=== PATIENT | female | born 1990 | race Two or more races ===

== ENCOUNTER 2018-10-28 20:34 | Emergency (ER) | payer OTHER ==
[~2018-10-28] VITALS: Ht 162.6 cm; Wt 114.8 kg
[2018-10-28 20:46] VITALS: BP 117/53
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
--- NOTE | 2018-10-28 21:04 | NUR ---
Patient discharged to home in stable condition. Written and verbal after care instructions given. Patient verbalizes understanding of instruction. Patient left facility on foot with steady gait. No s/s of acute distress or sob noted. VS stable.
== END 2018-10-28 21:07 | disposition home or self-care (01) ==
LOC: ER 20:45
DX: S00.33XA Contusion of nose, initial encounter (principal); V49.49XA Driver injured in collision with other motor vehicles in traffic accident, initial encounter; Y93.89 Activity, other specified; Y92.413 State road as the place of occurrence of the external cause; Y99.8 Other external cause status
CPT/HCPCS: 99281; A4606; Z7610; Z7502

== ENCOUNTER 2019-11-07 16:13 | Emergency (ER) | payer OTHER ==
[~2019-11-07] VITALS: Ht 160 cm; Wt 108.0 kg
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
--- NOTE | 2019-11-07 16:40 | NUR ---
SINA VIZCAINO AT BEDSIDE
[2019-11-07] MEDS ORDERED: BACITRACIN ZINC OINT PACKET 1 EA PACKET TP ONE (16:46)
--- NOTE | 2019-11-07 16:48 | NUR ---
TECH AT BEDSIDE FOR WOUND CARE.
[2019-11-07] MEDS ORDERED: BACITRACIN ZINC OINT (15 GM) 15 GM TUBE TP SCH (17:00)
[2019-11-07 17:12] VITALS: BP 131/70
--- NOTE | 2019-11-07 17:12 | NUR ---
Patient discharged to home in stable condition. Written and verbal after care instructions given. Patient verbalizes understanding of instruction.
== END 2019-11-07 17:12 | disposition home or self-care (01) ==
LOC: ER 16:18
DX: T24.002A Burn of unspecified degree of unspecified site of left lower limb, except ankle and foot, initial encounter (principal); L97.929 Non-pressure chronic ulcer of unspecified part of left lower leg with unspecified severity; E66.01 Morbid (severe) obesity due to excess calories; Z68.41 Body mass index [BMI] 40.0-44.9, adult; X19.XXXA Contact with other heat and hot substances, initial encounter; Y93.89 Activity, other specified; Y92.89 Other specified places as the place of occurrence of the external cause; Y99.8 Other external cause status